=== PATIENT | female | born 1990 | race African-American/Black ===

== ENCOUNTER 2017-01-18 09:09 | Inpatient (IN) ==
--- NOTE | 2017-01-18 10:17 | PROVIDER DOCUMENTATION ---
This chart was entered by Candice Haywood Scribe, acting as scribe for Mariana Diaz CRNP. HPI-Abdominal Pain/GI Problem - General Chief Complaint: Abdominal Pain Stated Complaint: ABD PAIN Time Seen by Provider: 01/18/17 09:58 Source: patient Allergies/Adverse Reactions: Patient Allergies Allergy/AdvReac Type Severity Reaction Status Date / Time No Known Allergies Allergy Verified 01/18/17 09:23 Home Medications: Home Medication List Medication Instructions Recorded Confirmed Last Taken Type NK [No Home Medications] 01/18/17 01/18/17 Unknown History - History of Present Illness-ABD Nature of Presenting Problems: Pt is 26 y/o F presents to the ED with abdominal pain. Pt states pain started yesterday. Pt states last BM was yesterday. Pt denies N/V/D Abdominal Pain Onset Location: reports: generalized abdomen Pain Radiation: reports: no radiation Quality of Pain: reports: aching Severity in ED: reports: mild Onset/Duration: reports: 24 hours ago Timing: reports: still present Activities at Onset: reports: light activity Exposure to sick contacts?: No Modifying Factors: improves with: nothing Associated Symptoms: reports: pain with inspiration. denies: anxiety, arm pain , back/neck pain, chest pain, constipation, cough, diaphoresis, diarrhea, dizziness, EENT symptoms, fatigue, fever/chills, genitourinary problems, headaches, heartburn, joint pain, loss of appetite, malaise, muscle aches, sinus congestion/drainage, nausea, rash, seizure, shortness of breath, sensory/ motor loss, swelling/mass in abdomen, syncope, vomiting, weakness, trouble walking Last BM: 24 hours ago Dark Stools Present?: reports: none noticed Rectal Bleeding: reports: none Rectal Pain: reports: none Emesis Description: reports: none Bruising or Bleeding Gums?: No Similar Symptoms Previously?: Yes Recently seen or treated by another doctor?: No Review of Systems - Adult - REVIEW OF SYSTEMS - ADULT Constitutional: reports: no symptoms reported Eyes: reports: no symptoms reported Ears, Nose, Mouth & Throat: reports: no symptoms reported Cardiovascular: reports: no symptoms reported Respiratory: reports: no symptoms reported Gastrointestinal: reports: abdominal pain. denies: diarrhea, nausea, vomiting Genitourinary: reports: no symptoms reported Musculoskeletal: reports: no symptoms reported Integumentary: reports: no symptoms reported Neurological: reports: no symptoms reported Psychiatric: reports: no symptoms reported Endocrine: reports: no symptoms reported Hematologic/Lymphatic: reports: no symptoms reported Allergic/Immunologic: reports: no symptoms reported All Other Systems: Reviewed and Negative Past History - Adult - PAST MEDICAL HISTORY-ADULT Review of Records: reports: Nursing Assessment Review, Medications Reviewed, Social history reviewed & non-contributory. Major Childhood Illnesses: reports: denies history Cardiovascular: reports: denies history Respiratory: reports: denies history Gastrointestinal: reports: diverticulosis, other (constipation) Obstetrical/Gynecological: reports: denies history Genitourinary: reports: denies history Musculoskeletal: reports: denies history Neurological: reports: denies history Psychiatric: reports: denies history Endocrine/Immune: reports: denies history Other Conditions: reports: denies history - PRIOR SURGERIES/PROCEDURES Surgical/Procedure History: reports: - PRIOR HOSPITALIZATIONS Prior Hospitalizations: reports: none - IMMUNIZATION STATUS Childhood Immunizations: See Nurse Assessment Flu Vaccine: See Nurse Assessment - FAMILY HISTORY Family History: reviewed, not pertinent - SOCIAL HISTORY Smoking: denies Substance Use: denies Living Situation: family Physical Exam-General - PHYSICAL EXAM-ADULT Initial Vital Signs Reviewed: Yes - CONSTITUTIONAL General Appearance: appears well, alert, no apparent distress - EYES Eyes: PERRL/EOMI, pink conjunctivae - HEAD, EARS, NOSE, MOUTH & THROAT HENMT: normocephalic/atraumatic, moist mucous membranes, normal ENT inspection - NECK Neck: supple, normal inspection - RESPIRATORY Respiratory: chest non-tender, lungs clear, normal breath sounds - CARDIOVASCULAR Cardiovascular: normal peripheral pulses, regular rate, rhythm - GASTROINTESTINAL (ABDOMEN) Abdominal Exam: soft, abnormal bowel sounds (hypo active), tenderness ( generalized) - LYMPHATIC Lymphatic: no adenopathy - MUSCULOSKELETAL Back Exam: normal inspection, no CVA tenderness, no vertebral tenderness Extremity: normal range of motion, non-tender, normal gait - SKIN Integumentary: normal color, normal turgor, warm/dry - NEUROLOGIC Neurologic: grossly normal - PSYCHIATRIC Psych/Mental Status: normal mood/affect, oriented x 3 Progress - PLAN OF CARE/RESULTS Progress/Plan/Lab Results: Vital Signs - 8 hr 01/18/17 09:20 Temperature 97.5 F L Pulse Rate 74 Respiratory Rate 18 Blood Pressure 141/78 O2 Sat by Pulse Oximetry 99 Vital Signs Temp Pulse Resp BP Pulse Ox 01/18/17 09:20 97.5 F L 74 18 141/78 99 No Known Allergies Allergy (Verified 01/18/17 09:23) NK [No Home Medications] 01/18/17 Laboratory 01/18/17 01/18/17 01/18/17 10:20 10:20 09:45 WBC 5.31 RBC 4.99 Hgb 12.9 Hct 37.5 MCV 75.2 L MCH 25.9 L MCHC 34.4 RDW Std Deviation 13.8 Plt Count 358 MPV 9.0 Immature Gran % (Auto) 0.0 Neut % (Auto) 83.4 H Lymph % (Auto) 12.2 L [place] % (Auto) 4.0 Eos % (Auto) 0.2 Baso % (Auto) 0.2 Immature Gran # (Auto) 0.00 Neut # (Auto) 4.43 Lymph # (Auto) 0.65 L [place] # (Auto) 0.21 Eos # (Auto) 0.01 Baso # (Auto) 0.01 Sodium 138 Potassium 4.0 Chloride 101 Carbon Dioxide 28 Anion Gap 10 BUN 9 Creatinine 0.7 Estimated GFR/1.73 m2 > 60 BUN/Creatinine Ratio 13 Glucose 128 H Calculated Osmolality 276 Calcium 9.6 Total Bilirubin 0.90 AST 323 H ALT 317 H Alkaline Phosphatase 179 H Total Protein 7.9 Albumin 4.1 Globulin 4.0 Albumin/Globulin Ratio 1.0 Amylase 1440 H Lipase > 3000 H Urine Source CLEAN CATCH Urine Color ABUNDIO Urine Clarity CLEAR Urine pH 6.5 Ur Specific [place] 1.015 Urine Protein 1+(30 mg/dL) A Urine Ketones TRACE Urine Blood TRACE Urine Nitrite POSITIVE A Urine Bilirubin NEGATIVE Urine Urobilinogen 3+(8 mg/dL) Urine Microscopic RBC <10 Urine WBC 1+ A Urine Microscopic WBC 10-20 A Ur Epithelial Cells >10 A Urine Bacteria 2+ Urine Glucose NEGATIVE Urine Test 01/18/17 09:45 WBC RBC Hgb Hct MCV MCH MCHC RDW Std Deviation Plt Count MPV Immature Gran % (Auto) Neut % (Auto) Lymph % (Auto) [place] % (Auto) Eos % (Auto) Baso % (Auto) Immature Gran # (Auto) Neut # (Auto) Lymph # (Auto) [place] # (Auto) Eos # (Auto) Baso # (Auto) Sodium Potassium Chloride Carbon Dioxide Anion Gap BUN Creatinine Estimated GFR/1.73 m2 BUN/Creatinine Ratio Glucose Calculated Osmolality Calcium Total Bilirubin AST ALT Alkaline Phosphatase Total Protein Albumin Globulin Albumin/Globulin Ratio Amylase Lipase Urine Source Urine Color Urine Clarity Urine pH Ur Specific [place] Urine Protein Urine Ketones Urine Blood Urine Nitrite Urine Bilirubin Urine Urobilinogen Urine Microscopic RBC Urine WBC Urine Microscopic WBC Ur Epithelial Cells Urine Bacteria Urine Glucose Urine Test NEGATIVE Orders Category Date Time Status Saline Loc NOW Care 01/18/17 11:[address] ABD/PELVIS W/ IV CONT ONLY [CT] Stat Exams 01/18/17 11:26 Ordered FLAT/UPRIGHT ABD/1 VIEW CHEST [RAD] Stat Exams 01/18/17 10:14 Completed AMYLASE [CHEM] Stat Lab 01/18/17 10:20 Completed CBC WITH ELECTRONIC DIFF [HEME] Stat Lab 01/18/17 10:20 Completed COMPREHENSIVE METABOLIC PANEL [CHEM] Stat Lab 01/18/17 10:20 Completed LIPASE [CHEM] Stat Lab 01/18/17 10:20 Completed TEST-URINE [PREG] Stat Lab 01/18/17 09:[address] W/POSS RFLX CULT [URINALYSIS] Stat Lab 01/18/17 09:45 Completed URINE CULTURE [RM] Routine Lab 01/18/17 10:33 Ordered 0.9% Sodium Chloride Inj [Ns] 1,000 ml Med 01/18/17 11:04 Active IV 999 mls/hr CefTRIAXONE 1 GM/NS [Rocephin 1 gm/Ns] Med 01/18/17 11:04 Discontinued 1 gm in 50 ml IV NOW Ondansetron [Zofran] Med 01/18/17 11:04 Discontinued 4 mg IV NOW ONE Laboratory Tests 01/18/17 01/18/17 01/18/17 09:45 09:45 10:20 WBC RBC Hgb Hct MCV MCH MCHC RDW Std Deviation Plt Count MPV Immature Gran % (Auto) Neut % (Auto) Lymph % (Auto) [place] % (Auto) Eos % (Auto) Baso % (Auto) Immature Gran # (Auto) Neut # (Auto) Lymph # (Auto) [place] # (Auto) Eos # (Auto) Baso # (Auto) Sodium 138 Potassium 4.0 Chloride 101 Carbon Dioxide 28 Anion Gap 10 BUN 9 Creatinine 0.7 Estimated GFR/1.73 m2 > 60 BUN/Creatinine Ratio 13 Glucose 128 H Calculated Osmolality 276 Calcium 9.6 Total Bilirubin 0.90 AST 323 H ALT 317 H Alkaline Phosphatase 179 H Total Protein 7.9 Albumin 4.1 Globulin 4.0 Albumin/Globulin Ratio 1.0 Amylase 1440 H Lipase > 3000 H Urine Source CLEAN CATCH Urine Color ABUNDIO Urine Clarity CLEAR Urine pH 6.5 Ur Specific [place] 1.015 Urine Protein 1+(30 mg/dL) A Urine Ketones TRACE Urine Blood TRACE Urine Nitrite POSITIVE A Urine Bilirubin NEGATIVE Urine Urobilinogen 3+(8 mg/dL) Urine Microscopic RBC <10 Urine WBC 1+ A Urine Microscopic WBC 10-20 A Ur Epithelial Cells >10 A Urine Bacteria 2+ Urine Glucose NEGATIVE Urine Test NEGATIVE 01/18/17 10:20 WBC 5.31 RBC 4.99 Hgb 12.9 Hct 37.5 MCV 75.2 L MCH 25.9 L MCHC 34.4 RDW Std Deviation 13.8 Plt Count 358 MPV 9.0 Immature Gran % (Auto) 0.0 Neut % (Auto) 83.4 H Lymph % (Auto) 12.2 L [place] % (Auto) 4.0 Eos % (Auto) 0.2 Baso % (Auto) 0.2 Immature Gran # (Auto) 0.00 Neut # (Auto) 4.43 Lymph # (Auto) 0.65 L [place] # (Auto) 0.21 Eos # (Auto) 0.01 Baso # (Auto) 0.01 Sodium Potassium Chloride Carbon Dioxide Anion Gap BUN Creatinine Estimated GFR/1.73 m2 BUN/Creatinine Ratio Glucose Calculated Osmolality Calcium Total Bilirubin AST ALT Alkaline Phosphatase Total Protein Albumin Globulin Albumin/Globulin Ratio Amylase Lipase Urine Source Urine Color Urine Clarity Urine pH Ur Specific [place] Urine Protein Urine Ketones Urine Blood Urine Nitrite Urine Bilirubin Urine Urobilinogen Urine Microscopic RBC Urine WBC Urine Microscopic WBC Ur Epithelial Cells Urine Bacteria Urine Glucose Urine Test Discussed results and plan of care with patient. Patient agrees with plan and verbalizes understanding. Result Diagrams: 01/18/17 10:20 01/18/17 10:20 - CT/MRI 1 CT Study: Abdomen (1. Small amount of abdominal and pelvic ascities. 2. Mildly prominant liver with mild fatty infiltration. 3. Subtle hypodense area at pancreatic head and body junction, but no distinct mass or pancreatic duct dilatation. 4. Questionable omental thickening. The appearance may simply be due to ascities. ([place])), Pelvis CT Results: See note - CONSULTS/PCP/HOSPITALIST Notification #1 *Consult/PCP/Hospitalist*: Dr. Hale Time Discussed: 13:09 Reason/Comments: Admission Consult Disposition: Will see in ED, Admit Departure - Departure Time of Disposition Decision: 11:58 DIAGNOSIS: Pancreatitis Qualifiers: Chronicity: acute Pancreatitis type: unspecified pancreatitis type Acute pancreatitis complication: unspecified Qualified Code(s): K85.90 - Acute pancreatitis without necrosis or infection, unspecified Ascites Qualifiers: Ascites type: other type Qualified Code(s): R18.8 - Other ascites Nausea and vomiting Qualifiers: Vomiting type: unspecified Vomiting Intractability: non-intractable Qualified Code(s): R11.2 - Nausea with vomiting, unspecified Disposition: ADMITTED INPATIENT 09 Certified Medical Emergency: Emergent Condition: Stable Referrals and Follow-Ups: Georges Collins MD [Primary Care Provider] - - Critical Care Note This patient required my direct & personal management of CC.: No Attestation - Physician/ CORNELIO Attestation Patient care was provided by Advanced Practice Provider:: Yes Advanced Practice Provider:: Mariana Diaz Advanced Practice Provider documentation review:: The Mid-level provider documentation, treatment plan and medical decision making was reviewed by the physician who agrees with all treatment and medical decision making by the MLP. This chart was documented by the indicated scribe, (Candice Haywood Scribe) and accurately reflects the services I performed and decisions made by me, Mariana Diaz CRNP, as attested by the provider's signature.
[2017-01-18 10:24] LABS: MANUAL DIFF NEEDED? NO
[2017-01-18 10:25] LABS: BASO% 0.2 % (0.0-0.8); EOS# 0.01 X1000 (0.0-0.7); EOS% 0.2 % (0.0-10.0); HEMATOCRIT 37.5 % (37.0-47.0); HEMOGLOBIN 12.9 g/dL (12.0-16.0); LYMPH# 0.65 X1000 (1.2-3.4); LYMPH% 12.2 % (20.5-51.1); MCH 25.9 PG (27-31); MCHC 34.4 g/dL (33-37); MCV 75.2 FL (81-99); MONO# 0.21 X1000 (0.11-0.59); NEUT% 83.4 % (42.2-75.2); PLT 358 X1000 (130-400); RBC 4.99 XMIL (4.2-5.4)
[2017-01-18 10:26] LABS: BILIRUBIN URINE NEGATIVE (NEGATIVE); BLOOD URINE TRACE (NEGATIVE); CLARITY CLEAR (CLEAR); COLOR AMBER; GLUCOSE URINE NEGATIVE (NEGATIVE); LEUKOCYTES URINE 1+ (NEGATIVE); NITRITE URINE POSITIVE (NEGATIVE); PH URINE 6.5; PROTEIN URINE 1+(30 mg/dL) mg/dL (NEGATIVE); SP GRAVITY URINE 1.015
[2017-01-18 10:33] LABS: URINE CULTURE PL NEEDED? YES; URINE EPITHELIAL CELLS >10 /HPF (<10); URINE RBC <10 /HPF (<10); URINE SOURCE CLEAN CATCH; UROBILINOGEN URINE 3+(8 mg/dL)
[2017-01-18 10:39] LABS: AGAP 10; ALBUMIN 4.1 g/dL (3.5-5.0); ALKALINE PHOSPHATASE 179 U/L (32-104); AMYLASE 1440 U/L (20-200); BUN 9 mg/dL (8-22); CALCIUM 9.6 mg/dL (8.8-10.2); CHLORIDE 101 mmol/L (98-107); COSMO 276; GOT 323 U/L (10-30); GPT 317 U/L (10-36); SODIUM 138 mmol/L (136-145); TCO2 28 mmol/L (25-35); TOTAL PROTEIN 7.9 g/dL (6.3-8.3)
[2017-01-18] MEDS ORDERED: ROCEPHIN 1 GM/NS 1 GM/50 ML IVPB IV ONE (11:04)
[2017-01-18] MEDS ORDERED: ZOFRAN IV ONE (11:04)
[2017-01-18] MEDS ORDERED: NS 1,000 ML IV ONE (11:04)
[2017-01-18 11:19] LABS: LIPASE > 3000 U/L (13-60)
--- NOTE | 2017-01-18 11:30 | Diag Imaging Result Doc PS360 ---
EXAM: FLAT/UPRIGHT ABD/1 VIEW CHEST HISTORY: abd pain TECHNIQUE: Flat and upright with chest, three views COMPARISON: Abdomen is compared to 05/08/2016 FINDINGS: The lungs are well expanded. Cardiomegaly. No pneumonia. No free air beneath the diaphragm. There is stool throughout the transverse colon. The bowel loops are not dilated. No organomegaly. No foreign body. No abnormal calcifications. Mild scoliosis. IMPRESSION: Constipation Electronically signed by Fer Ma 01/18/2017 11:28 AM
--- NOTE | 2017-01-18 12:26 | Diag Imaging Result Doc PS360 ---
EXAM: CT ABD/PELVIS W/ IV CONT ONLY HISTORY: abd pain TECHNIQUE: Dose reduction protocol COMPARISON: 03/01/2016 FINDINGS: Mild fatty infiltration of the liver. No focal hepatic abnormality. The liver is mildly prominent. Normal spleen, gallbladder, and adrenal glands. Normal enhancement of the kidneys. Vague hypodense area at the junction of the pancreatic head and body, but no distinct mass. The pancreatic duct is not dilated. There is a small amount of free fluid in the upper abdomen about the pancreas and spleen. Normal aorta. No bowel obstruction. Normal appendix. No abscess. Small amount of ascites in the lower abdomen with moderate amount in the pelvis. Normal uterus and ovaries. The urinary bladder is only mildly distended. IMPRESSION: 1.Small amount of abdominal and pelvic ascites 2.Mildly prominent liver with mild fatty infiltration 3.Subtle hypodense area at pancreatic head and body junction, but no distinct mass or pancreatic duct dilatation. 4.Questionable omental thickening. The appearance may simply be due to ascites. Electronically signed by Fer Ma 01/18/2017 12:24 PM
[2017-01-18] MEDS: ZOSYN 3.375 GM/NS 3.375 GM/50 ML IVPB IV SCH ×2 (14:09→20:34)
--- NOTE | 2017-01-18 14:23 | Diag Imaging Result Doc PS360 ---
EXAM: US GB < RUQ (LIMITED) HISTORY: pancreatitis TECHNIQUE: COMPARISON: Recent abdominal CT FINDINGS: Normal pancreatic head and body. Pancreatic tail is obscured. Normal inferior vena cava. Normal abdominal aorta. Mild fatty infiltration of the liver. No focal hepatic abnormality. Normal right kidney. No hydronephrosis. The common bile duct measures 3 mm. Several stones within the gallbladder. There is a small amount of ascites in the right upper quadrant. Mild gallbladder wall thickening. This is specifically seen with ascites thus is not indicative of cholecystitis. IMPRESSION: 1.Cholelithiasis 2.Small amount of ascites 3.Fatty infiltration of the liver 4.A preliminary report was given to Dr. Hale Electronically signed by Fer Ma 01/18/2017 2:21 PM
[2017-01-18] MEDS: MORPHINE IV PRN ×3 (14:28→23:04)
[2017-01-18] MEDS ORDERED: TYLENOL PO PRN (16:11)
[2017-01-18] MEDS ORDERED: PROTONIX IV SCH (16:11)
[2017-01-18] MEDS: NS 1,000 ML IV SCH (16:35)
[2017-01-18] MEDS: PROTONIX IV SCH (16:36)
[2017-01-18] MEDS: SODIUM CHLORIDE 0.9% INJ SCH (16:36)
--- NOTE | 2017-01-18 18:16 | HISTORY AND PHYSICAL ---
PRIMARY CARE PHYSICIAN: Dr. Georges Collins. CHIEF COMPLAINT: Epigastric and right upper quadrant abdominal pain that began yesterday. HISTORY OF PRESENTING ILLNESS: This is a 26-year-old female who presents to [facility] ER with complaints of epigastric and right upper quadrant abdominal pain that began yesterday with associated nausea. Denied any vomiting or diarrhea. Workup in the ER showed an amylase of 1440 with a lipase of greater than 3000, AST of 323, ALT 317, alkaline phosphatase 179. We did an abdomen and pelvic CT that showed a small amount of abdominal and pelvic ascites. Mildly prominent liver with mild fatty infiltration, and no distinct mass or pancreatic duct dilation and a questionable omental thickening that may simply be due to ascites. We did a right upper quadrant abdominal ultrasound that showed cholelithiasis, a small amount of ascites, fatty infiltration of the liver. The common bile duct measured 3 mm with several stones within the gallbladder. So, she will be admitted to the surgical unit at [facility] for further evaluation and treatment. PAST MEDICAL HISTORY: None. PAST SURGICAL HISTORY: . FAMILY HISTORY: Noncontributory. SOCIAL HISTORY: She currently lives with family. Denies any tobacco, alcohol, or illicit drug use. ALLERGIES: She has no known drug allergies. HOME MEDICATIONS: She does not take any medicines on a routine basis. LABORATORY DATA: Showed a white blood cell count of 5.31, hemoglobin 12.9, hematocrit 37.5, platelets 358,000. Sodium 138, potassium 4, chloride 101, CO2 28, BUN of 9, creatinine 0.7, AST of 323, ALT 317, alkaline phosphatase was 179, amylase of 1440 with a lipase of greater than 3000. Urinalysis with positive nitrites, 1+ white blood cells and 2+ bacteria. Negative urine test. X-ray of the abdomen showed constipation. Abdomen and pelvis CT showed a small amount of abdominal and pelvic ascites, mildly prominent liver with mild fatty infiltration, a subtle hypodense area at the pancreatic head and body junction, but no distinct mass or pancreatic duct dilation. Questionable omental thickening that appears simply be due to the ascites. Abdomen ultrasound showed cholelithiasis, a small amount of ascites, fatty infiltration of the liver. REVIEW OF SYSTEMS: She denied any fever, chills, blurred vision, dizziness, chest pain, coughing, shortness of breath. She is positive for epigastric and right upper quadrant abdominal pain, nausea, denied any vomiting or diarrhea. PHYSICAL EXAMINATION: VITAL SIGNS: Temperature of 97.5 degrees, pulse 74, respirations 18, blood pressure 141/78, saturating 99% on room air. GENERAL: This is a 26-year-old morbidly obese, female, who is sitting up in the bed, answers questions appropriately. HEENT: Normocephalic and atraumatic. Pupils are equal, round, reactive to light. Extraocular movements are intact. Oropharynx and nares are clear. NECK: Supple. LUNGS: Clear to auscultation bilaterally with equal lung expansion and chest wall movement. HEART: With regular rate and rhythm. No murmurs, rubs, or gallops. ABDOMEN: Soft. There is tenderness to palpation to the epigastric and right upper quadrant area. Bowel sounds are present x4 quadrants. EXTREMITIES: No clubbing, cyanosis, or edema. NEUROLOGICAL: The cranial nerves 2-12 appear grossly intact. ASSESSMENT: 1. Acute pancreatitis. 2. Cholelithiasis. 3. Elevated liver function tests. 4. Urinary tract infection. PLAN: She will be admitted to the Surgical Unit at [facility]. We will hold her nothing per oral. We will check a urine culture, give her morphine 2-4 mg IV q.4 hours p.r.n., Zosyn 3.375 g IV q.6 hours, normal saline at 125 mL an hour, Zofran 4 mg IV q.4 hours p.r.n., Protonix 40 mg IV daily. We will consult Surgery, place on telemetry and recheck a CBC, CMP, amylase and lipase in the a.m. Dictated by NICOLETTE Escalera for Ovi Hale MD cc: NICOLETTE Escalera MD Malcolm R. Hendricks, MD pt examined, agree with above APENOT MTDD
[2017-01-19] MEDS: ZOSYN 3.375 GM/NS 3.375 GM/50 ML IVPB IV SCH ×5 (00:06→17:31)
[2017-01-19] MEDS: NS 1,000 ML IV SCH ×3 (01:21→17:44)
[2017-01-19 05:30] LABS: MANUAL DIFF NEEDED? NO
[2017-01-19 05:39] LABS: BASO% 0.2 % (0.0-0.8); EOS# 0.03 X1000 (0.0-0.7); EOS% 0.5 % (0.0-10.0); HEMATOCRIT 32.1 % (37.0-47.0); HEMOGLOBIN 10.9 g/dL (12.0-16.0); LYMPH% 12.6 % (20.5-51.1); MCV 76.6 FL (81-99); MONO# 0.42 X1000 (0.11-0.59); MONO% 6.6 % (1.7-9.3); MPV 9.1 FL (7.4-10.4); NEUT% 80.1 % (42.2-75.2); PLT 286 X1000 (130-400); RBC 4.19 XMIL (4.2-5.4)
[2017-01-19 05:54] LABS: AGAP 11; ALBUMIN 3.4 g/dL (3.5-5.0); ALKALINE PHOSPHATASE 133 U/L (32-104); AMYLASE 938 U/L (20-200); BUN 7 mg/dL (8-22); CALCIUM 8.4 mg/dL (8.8-10.2); CHLORIDE 105 mmol/L (98-107); COSMO 282; GOT 93 U/L (10-30); GPT 175 U/L (10-36); POTASSIUM 3.6 mmol/L (3.5-5.1); SODIUM 142 mmol/L (136-145); TCO2 26 mmol/L (25-35); TOTAL BILIRUBIN 0.85 mg/dL (0.20-1.00); TOTAL PROTEIN 6.7 g/dL (6.3-8.3)
[2017-01-19 05:58] LABS: LIPASE 1369 U/L (13-60)
[2017-01-19] MEDS: MORPHINE IV PRN ×2 (06:53→20:59)
--- NOTE | 2017-01-19 07:04 | CONSULTATION ---
DATE OF CONSULTATION: 01/19/2017 CHIEF COMPLAINT: Epigastric pain. HISTORY: A 26-year-old, female who reports the onset of epigastric pain last Thursday. The pain persisted and she sought medical attention yesterday. She reports having symptoms like this recurrently. Workup showed elevated amylase and lipase, and some gallstones. PAST MEDICAL HISTORY: Unremarkable. PAST SURGICAL HISTORY: She has had a in the past. FAMILY HISTORY: Noncontributory. SOCIAL HISTORY: She denies tobacco or alcohol usage. MEDICATIONS: She takes no scheduled medications. ALLERGIES: Has no known drug allergies. REVIEW OF SYSTEMS: Pertinent for nausea and pain. No diarrhea. PHYSICAL EXAMINATION: Vital Signs: She is afebrile, heart rate 73, respiratory rate 16, blood pressure 153/74. Lymphatics: No cervical adenopathy. Heart: Regular rate and rhythm. There is a systolic murmur. Lungs: Bilateral breath sounds are present. Abdomen: Soft, but tender in the epigastrium. Extremities: No peripheral edema. Neurologic: She is awake and alert. DIAGNOSTICS/LABS: White count is 6300, hemoglobin 10.9, hematocrit 32. Total bilirubin 0.85, AST 93 down from 323, ALT 175 down from 317, alkaline phosphatase 133 down from 179, amylase 938 down from 1440, lipase 1369 down from greater than 3000. Urine is nitrite positive. test is negative. ASSESSMENT: Gallstone pancreatitis. PLAN: We will allow her amylase and lipase to normalize or at least improve more. Consider her for a cholecystectomy on Thursday, the . I have discussed this with her. Thank you for the opportunity to see her. cc: Edison Granado MD
[2017-01-19] MEDS: ZOFRAN IV PRN ×2 (08:29→21:00)
--- NOTE | 2017-01-19 08:54 | PROGRESS NOTE ---
DATE: 01/19/2017 Ms. Savanah Lofton is a 26-year-old, black female, who is hospital day 2. Admitted with gallstone pancreatitis. Her amylase is improving. It is 938 today. Lipase is 1369. She is afebrile. Heart rate is 67, blood pressure 126/70, O2 saturation 98%. Her white blood cell count is normal. Hematocrit is 32%. She is on IV Zosyn. BUN and creatinine are 7 and 0.7. She does have cholelithiasis by ultrasound. It was felt that this was gallstone pancreatitis and as her amylase and lipases improves with conservative treatment, she needs cholecystectomy. cc: Karen Hines MD
[2017-01-19] MEDS ORDERED: TYLENOL PO PRN (11:08)
--- NOTE | 2017-01-19 13:56 | PROGRESS NOTE ---
DATE: 01/19/2017 SUBJECTIVE: The patient is resting comfortably in bed. She has no complaints at this time. OBJECTIVE: Vital Signs: Temperature 98.5 degrees, blood pressure 143/78, heart rate 76, respirations 20, O2 saturations 99% on room air. General: This is a young female lying in bed in no acute distress. Head: Normocephalic, atraumatic. Heart: S1, S2. Normal. Regular rate and rhythm. Lungs: Clear auscultation bilaterally. Abdomen: Positive bowel sounds. Soft, nontender. Extremities: No edema. No cyanosis. Neurologic: The patient is alert oriented x3. LABORATORY STUDIES: White blood cell count 6.3, hemoglobin 10, hematocrit 32, platelets 286,000. Sodium 142, potassium 3.6, chloride 105, CO2 26, BUN 7, creatinine 0.7, glucose 111, AST 93, ALT 175, alkaline phosphatase 133, lipase 1369. ASSESSMENT AND PLAN: 1. Gallstone pancreatitis. Continue with IV fluids, IV antibiotics. The patient is scheduled for a laparoscopic cholecystectomy tomorrow. 2. Fatty infiltration of the liver. Aware. Will check a lipid profile. 3. Morbid obesity. Aware. 4. Deep vein thrombosis prophylaxis. Continue with SCDs. 5. Gastrointestinal prophylaxis. Will start the patient on Protonix. cc: Araina Jones MD
[2017-01-19] MEDS: SODIUM CHLORIDE 0.9% INJ SCH (17:31)
[2017-01-19] MEDS: PROTONIX IV SCH (17:31)
[2017-01-20] MEDS: ZOSYN 3.375 GM/NS 3.375 GM/50 ML IVPB IV SCH ×4 (00:29→17:27)
[2017-01-20] MEDS: NS 1,000 ML IV SCH ×3 (03:58→15:45)
[2017-01-20 05:27] LABS: MANUAL DIFF NEEDED? NO
[2017-01-20 05:38] LABS: BASO% 0.2 % (0.0-0.8); EOS# 0.08 X1000 (0.0-0.7); EOS% 1.2 % (0.0-10.0); HEMATOCRIT 30.6 % (37.0-47.0); HEMOGLOBIN 10.4 g/dL (12.0-16.0); LYMPH# 1.19 X1000 (1.2-3.4); LYMPH% 18.3 % (20.5-51.1); MCV 76.5 FL (81-99); MONO# 0.58 X1000 (0.11-0.59); MONO% 8.9 % (1.7-9.3); MPV 9.6 FL (7.4-10.4); NEUT% 71.4 % (42.2-75.2); PLT 267 X1000 (130-400)
[2017-01-20 06:16] LABS: AGAP 10; ALBUMIN 3.4 g/dL (3.5-5.0); ALKALINE PHOSPHATASE 114 U/L (32-104); BUN 4 mg/dL (8-22); CALCIUM 8.5 mg/dL (8.8-10.2); CHLORIDE 103 mmol/L (98-107); COSMO 276; GOT 38 U/L (10-30); GPT 106 U/L (10-36); POTASSIUM 3.5 mmol/L (3.5-5.1); SODIUM 140 mmol/L (136-145); TCO2 27 mmol/L (25-35); TOTAL BILIRUBIN 0.59 mg/dL (0.20-1.00); TOTAL PROTEIN 6.9 g/dL (6.3-8.3)
[2017-01-20] MEDS ORDERED: SODIUM CHLORIDE 0.9% ONE (12:40)
[2017-01-20] MEDS ORDERED: LR 1,000 ML ONE ×2 (12:40→14:54)
[2017-01-20] MEDS ORDERED: MARCAINE 0.25% PF/EPI 1:200,000 ONE (12:41)
[2017-01-20] MEDS ORDERED: REGLAN ONE (12:50)
[2017-01-20] MEDS ORDERED: VERSED ONE (12:50)
[2017-01-20] MEDS ORDERED: TRANSDERM-SCOP ONE (12:50)
[2017-01-20] MEDS ORDERED: PEPCID ONE (12:50)
[2017-01-20 12:54] LABS: HEPATITIS PROFILE ACUTE SEE COMMENTS
[2017-01-20] MEDS ORDERED: MORPHINE IV PRN (13:58)
[2017-01-20] MEDS ORDERED: FENTANYL ONE (14:08)
[2017-01-20] MEDS ORDERED: DIPRIVAN 1% ONE (14:09)
[2017-01-20] MEDS ORDERED: DECADRON ONE (14:54)
[2017-01-20] MEDS ORDERED: ZEMURON ONE (14:54)
[2017-01-20] MEDS ORDERED: ROBINUL ONE (14:54)
[2017-01-20] MEDS ORDERED: ZOFRAN ONE (14:54)
[2017-01-20] MEDS ORDERED: QUELICIN (DOSE) ONE (14:54)
[2017-01-20] MEDS ORDERED: NEOSTIGMINE ONE (14:54)
[2017-01-20] MEDS ORDERED: TORADOL ONE (14:54)
[2017-01-20] MEDS ORDERED: XYLOCAINE-MPF 2% ONE (14:54)
--- NOTE | 2017-01-20 16:03 | PROGRESS NOTE ---
DATE: 01/20/2017 SUBJECTIVE: The patient is laying comfortably in bed. She is awaiting surgery today. OBJECTIVE: Vital Signs: Temperature 98.6 degrees, blood pressure 130/88, heart rate 73, respirations 16, O2 saturations 98% on room air. General: This is a morbidly obese female, lying in bed, in no acute distress. Head: Normocephalic, atraumatic. Heart: S1, S2. Normal. Regular rate and rhythm. Lungs: Clear to auscultation bilaterally. No wheezes, no rales. No rhonchi. Abdomen: Positive bowel sounds. Soft, nontender, nondistended. Extremities: No edema. No cyanosis. No calf tenderness. LABORATORY: White blood cell count 6.5, hemoglobin 10, hematocrit 30, platelets 267,000. Sodium 140, potassium 3.5, BUN 4, creatinine 0.5, AST 38, ALT 106, alkaline phosphatase 114. ASSESSMENT AND PLAN: 1. Gallstone pancreatitis. The patient is scheduled to undergo laparoscopic cholecystectomy today. 2. Fatty liver disease. Aware. The patient has been advised about weight loss. 3. Morbid obesity. Aware. 4. Gastrointestinal prophylaxis. Continue on Protonix. 5. Deep vein thrombosis prophylaxis. Continue with Sequential Compression Devices. cc: Ariana Jones MD
[2017-01-20] MEDS: PROTONIX IV SCH (17:28)
[2017-01-20] MEDS: SODIUM CHLORIDE 0.9% INJ SCH (17:28)
[2017-01-20] MEDS: PERIDEX MT SCH (20:38)
[2017-01-21] MEDS: NS 1,000 ML IV SCH ×2 (00:06→09:09)
[2017-01-21] MEDS: ZOSYN 3.375 GM/NS 3.375 GM/50 ML IVPB IV SCH ×2 (03:12→08:47)
[2017-01-21 05:37] LABS: MANUAL DIFF NEEDED? NO
[2017-01-21 05:45] LABS: BASO% 0.1 % (0.0-0.8); HEMATOCRIT 27.9 % (37.0-47.0); HEMOGLOBIN 9.4 g/dL (12.0-16.0); LYMPH# 1.16 X1000 (1.2-3.4); LYMPH% 16.6 % (20.5-51.1); MCH 25.6 PG (27-31); MCHC 33.7 g/dL (33-37); MONO# 0.68 X1000 (0.11-0.59); MONO% 9.8 % (1.7-9.3); MPV 9.7 FL (7.4-10.4); NEUT% 73.5 % (42.2-75.2); PLT 241 X1000 (130-400); RBC 3.67 XMIL (4.2-5.4)
[2017-01-21 06:14] LABS: AGAP 9; ALBUMIN 3.4 g/dL (3.5-5.0); ALKALINE PHOSPHATASE 94 U/L (32-104); BUN 6 mg/dL (8-22); CALCIUM 8.7 mg/dL (8.8-10.2); CHLORIDE 106 mmol/L (98-107); COSMO 279; GOT 28 U/L (10-30); GPT 76 U/L (10-36); LIPASE 30 U/L (13-60); POTASSIUM 3.9 mmol/L (3.5-5.1); SODIUM 141 mmol/L (136-145); TCO2 26 mmol/L (25-35); TOTAL BILIRUBIN 0.36 mg/dL (0.20-1.00); TOTAL PROTEIN 7.3 g/dL (6.3-8.3)
[2017-01-21] MEDS: PERIDEX MT SCH (08:47)
[2017-01-21] MEDS ORDERED: NORCO-5 PO PRN (09:34)
[2017-01-21 11:45] VITALS: BP 136/74
--- NOTE | 2017-01-28 11:19 | OPERATIVE NOTE ---
PROCEDURE DATE: 01/20/2017 SURGEON: Edison Granado MD PREOPERATIVE DIAGNOSIS: Acute calculous cholecystitis. POSTOPERATIVE DIAGNOSIS: Acute calculous cholecystitis. PROCEDURE: Laparoscopic cholecystectomy with operative cholangiogram. DESCRIPTION OF PROCEDURE: The patient was placed supine on the operating room table, satisfactory general endotracheal anesthesia was achieved. The abdomen is prepped and draped in a sterile fashion. We anesthetized skin at the base of the umbilicus, used a 5 mm Optiview technique to enter the abdominal cavity. We insufflated through this trocar. Under direct visualization introduced a 5 trocar midclavicular line, a 5 trocar in the anterior axillary line, an 11 mm trocar in the midepigastrium. We placed the patient in reverse Trendelenburg and turned her to the left. We grasped the fundus, reflected cephalad, began dissection of the triangle of Calot. We then dissected the triangle of Calot, identified the cystic artery and cystic duct. We clipped the junction of the cystic duct near the junction of the gallbladder. We incised the cystic duct introduced a Inés catheter, shot the cholangiogram. The findings showed satisfactory flow into the duodenum. No intraluminal filling defects. We removed the cholangiogram catheter, clipped the cystic duct on the opposite side of the cystic ductotomy x2. We then transected the cystic duct. The cystic artery clipped proximally x2, distally x1, and divided. We then used the cautery spatula to dissect the gallbladder away from the liver. After complete separation of gallbladder from liver, we left the videolaparoscope in the 5 mm trocar at the umbilicus, we introduced an EndoCatch, placed the gallbladder within the bag and delivered it out of the abdominal cavity in the epigastrium. We looked back, hemostasis was satisfactory. We then decompressed the abdominal cavity. We closed the fascia in the epigastrium with 2-0 Polysorb fascial stitches. We closed the skin at each incision with 4-0 Polysorb subcuticular stitches. Sterile OpSite were applied. She tolerated it well, was sent to the recovery room in satisfactory condition. cc: Edison Granado MD [facility]
--- NOTE | 2017-02-01 19:02 | DISCHARGE SUMMARY ---
ADMISSION DATE: 01/18/2017 DISCHARGE DATE: 01/21/2017 FINAL DISCHARGE DIAGNOSES: 1. Gallstone pancreatitis, status post laparoscopic cholecystectomy. 2. Fatty liver disease. 3. Morbid obesity. CONSULTATIONS REQUESTED DURING THIS HOSPITAL STAY: General surgery consultation with Dr. Granado. PROCEDURES PERFORMED DURING THIS HOSPITAL STAY: Laparoscopic cholecystectomy performed on 01/20/2017. HOSPITAL COURSE: Ms. Lofton is a 26-year-old female, with a history of morbid obesity, who presented to the ER with a chief complaint of epigastric pain, as well as right upper quadrant pain. The patient was admitted to the hospitalist service. An abdominal ultrasound was done that revealed cholelithiasis. The patient also had a CT of the abdomen and pelvis done that revealed mild fatty liver infiltration. The patient was made n.p.o. and General Surgery was consulted. The patient was taken to the OR on 01/20/2017, at which time a laparoscopic cholecystectomy was performed. The patient did well postoperatively. The patient was ultimately cleared for discharge home on 01/22/2016. DISCHARGE MEDICATIONS: 1. Levaquin 500 mg p.o. daily. 2. [place] 10/325 mg one tablet every 4 hours P.R.N. pain. DISCHARGE DIET: [place] diet. ACTIVITY: As tolerated. FOLLOWUP INSTRUCTIONS: The patient has been advised to followup with Dr. Granado as scheduled by his clinic. cc: Ariana Jones MD
== END 2017-01-21 13:47 | disposition home or self-care (01) ==
LOC: P.ED 09:09 → 4N 15:04 → SUATTDRO 15:04
PROVIDERS: ATTEND Internal Medicine

== ENCOUNTER 2019-02-05 19:37 | Observation (INO) ==
[~2019-02-05 19:37] MED LIST: MAGNESIUM SULFATE ONE
[2019-02-05] MEDS ORDERED: MAGNESIUM SULFATE 2 GM/S.W.I. 2 GM/50 ML IVPB IV ONE (19:42)
[2019-02-05] MEDS ORDERED: NS 500 ML IV ONE (19:43)
[2019-02-05 20:13] LABS: BASO# 0.02 X1000 (0.0-0.2); BASO% 0.3 % (0.0-0.8); EOS# 0.14 X1000 (0.0-0.7); EOS% 2.3 % (0.0-10.0); HEMATOCRIT 29.9 % (37.0-47.0); HEMOGLOBIN 10.3 g/dL (12.0-16.0); IMM GRAN# 0.04 X1000 (0.0-0.04); IMM GRAN% 0.7 % (0.0-0.5); LYMPH# 1.53 X1000 (1.2-3.4); LYMPH% 25.2 % (20.5-51.1); MCH 25.4 PG (27-31); MCHC 34.4 g/dL (33-37); MCV 73.8 FL (81-99); MONO# 0.44 X1000 (0.11-0.59); MONO% 7.2 % (1.7-9.3); MPV 9.4 FL (7.4-10.4); NEUT# 3.91 X1000 (1.4-6.5); NEUT% 64.3 % (42.2-75.2); PLT 277 X1000 (130-400); RBC 4.05 XMIL (4.2-5.4); WBC 6.08 X1000 (4.8-10.8)
[2019-02-05 20:18] LABS: AGAP 15; ALBUMIN 4.1 g/dL (3.5-5.0); ALKALINE PHOSPHATASE 83 U/L (32-104); BUN 6 mg/dL (8-22); CALCIUM 9.4 mg/dL (8.8-10.2); CHLORIDE 101 mmol/L (98-107); COSMO 270; CREATININE 0.5 mg/dL (0.5-0.9); ESTIMATED GFR > 60; GLUCOSE 110 mg/dL (70-104); GOT 19 U/L (10-30); GPT 23 U/L (10-36); POTASSIUM 3.6 mmol/L (3.5-5.1); SODIUM 136 mmol/L (136-145); TCO2 21 mmol/L (25-35); TOTAL PROTEIN 7.6 g/dL (6.3-8.3)
[2019-02-05 20:20] LABS: LYMPHS 28 % (21-51); MONO 6 % (1-9); SEGS 66 % (42-75)
[2019-02-05 20:21] LABS: HYPOCHROM 2+; MICROCYTOSIS 1+
[2019-02-05] MEDS ORDERED: KEPPRA 500 MG in NS 100 ML IV ONE (21:06)
--- NOTE | 2019-02-05 21:54 | Diag Imaging Result Doc PS360 ---
EXAM: CT HEAD W/O CONTRAST HISTORY: seizure, TECHNIQUE: CT head without contrast COMPARISON: 05/11/2016 FINDINGS: No parenchymal hemorrhage. No epidural or subdural hematoma. No subarachnoid hemorrhage. No mass identified on this noncontrasted exam. No hydrocephalus. No sinus opacification. IMPRESSION: No hemorrhage. Negative brain CT without contrast. This exam was performed using automated exposure control, adjustment of mA or kV according to patient size, and/or use of iterative reconstruction technique. Electronically signed by Fer Ma 02/05/2019 9:52 PM
[2019-02-05] MEDS ORDERED: NS 1,000 ML IV ONE (22:09)
[2019-02-05] MEDS ORDERED: LAMICTAL PO ONE (22:49)
[2019-02-05] MEDS ORDERED: TYLENOL ONE (23:13)
[2019-02-05] MEDS ORDERED: NUBAIN IV PRN (23:13)
[2019-02-05] MEDS ORDERED: TYLENOL PO ONE (23:14)
[2019-02-06] LABS: BILIRUBIN URINE NEGATIVE (NEGATIVE); BLOOD URINE NEGATIVE (NEGATIVE); CLARITY SL. CLOUDY (CLEAR); COLOR YELLOW; GLUCOSE URINE NEGATIVE (NEGATIVE); KETONE URINE TRACE mg/dL (NEGATIVE); LEUKOCYTES URINE TRACE (NEGATIVE); NITRITE URINE NEGATIVE (NEGATIVE); PROTEIN URINE NEGATIVE (NEGATIVE); SP GRAVITY URINE 1.015; URINE BACTERIA 3+ /HFP; URINE EPITHELIAL CELLS <10 /HPF (<10); URINE RBC <10 /HPF (<10); URINE SOURCE CATH; URINE WBC <10 /HPF (<10); UROBILINOGEN URINE 1 mg/dL
--- NOTE | 2019-02-06 03:01 | PROVIDER DOCUMENTATION ---
This chart was entered by Emma Swain Scribe, acting as scribe for Gayatri De Dios MD. HPI-Neurological Disorder - General Chief Complaint: Seizure Stated Complaint: seizure Time Seen by Provider: 02/05/19 19:38 Source: RN/MD, EMS Allergies/Adverse Reactions: Patient Allergies Allergy/AdvReac Type Severity Reaction Status Date / Time No Known Allergies Allergy Verified 05/23/18 07:30 Home Medications: Home Medication List Medication Instructions Recorded Confirmed Last Taken Type Pnv Comb.no58/Iron Bisgly/FA 1 tab PO DAILY 01/06/18 02/05/19 01/06/18 History [ Capsule] - History of Present Illness-Neuro Nature of Presenting Problem: 28 yof c/o pt arrived via ems for seizure. ems and rn historians. pt is 4-5 months and had seizure at dinner. pt is in er. rn sts pt and sts she is , no care. pt unable to answer questions, but can comprehend. pt has hx of seizures. rn sts pt told her LMP was oct 07, 2018. - Seizure Episode details: reports: unknown duration, unknown number Post-ictal Symptoms: reports: speech difficulty Review of Systems - Adult - REVIEW OF SYSTEMS - ADULT Constitutional: reports: no symptoms reported Eyes: reports: no symptoms reported Ears, Nose, Mouth & Throat: reports: no symptoms reported Cardiovascular: reports: no symptoms reported Respiratory: reports: no symptoms reported Gastrointestinal: reports: no symptoms reported Genitourinary: reports: see HPI, other (pt is 4-5 months ). denies: hematuria, hesitency, incontinence Musculoskeletal: reports: no symptoms reported Integumentary: reports: no symptoms reported Neurological: reports: see HPI, seizure. denies: dizziness/vertigo, head ache/migraines, slurred speech Psychiatric: reports: no symptoms reported Endocrine: reports: no symptoms reported Hematologic/Lymphatic: reports: no symptoms reported Allergic/Immunologic: reports: no symptoms reported All Other Systems: Reviewed and Negative Past History - Adult - PAST MEDICAL HISTORY-ADULT Review of Records: reports: Old Records Reviewed, Nursing Assessment Review, Medications Reviewed, Social history reviewed & non-contributory. Major Childhood Illnesses: reports: denies history Cardiovascular: reports: denies history Respiratory: reports: denies history Gastrointestinal: reports: diverticulosis, other (constipation) Obstetrical/Gynecological: reports: denies history Genitourinary: reports: denies history Musculoskeletal: reports: denies history Neurological: reports: Seizures/Epilepsy Psychiatric: reports: denies history Endocrine/Immune: reports: Diabetes (gestational) Other Conditions: reports: denies history - PRIOR SURGERIES/PROCEDURES Surgical/Procedure History: reports: cholecystectomy, - PRIOR HOSPITALIZATIONS Prior Hospitalizations: reports: none - IMMUNIZATION STATUS Childhood Immunizations: See Nurse Assessment Flu Vaccine: See Nurse Assessment - FAMILY HISTORY Family History: reviewed, not pertinent - SOCIAL HISTORY Smoking: non-smoker Substance Use: none/never Physical Exam- Neurological - Physical Exam-Neuro Initial Vital Signs Reviewed: Yes General Appearance: alert (postictal state during exam but alert), mild distress , obese, slow to respond. negative: lethargic, obtunded, combative Eye Exam: bilateral eye: normal inspection, PERRL, EOMI HENMT: normocephalic/atraumatic, moist mucous membranes, normal ENT inspection Head Injury: no evidence of injury Neck: non-tender, full range of motion, supple, normal inspection Respiratory: chest non-tender, lungs clear, normal breath sounds Cardiovascular: normal peripheral pulses, regular rate, rhythm Abdominal Exam: normal bowel sounds, non tender, soft Lymphatic: no adenopathy Peripheral Pulses: radial (R): 2+, radial (L): 2+ Extremity: normal range of motion, non-tender, normal inspection benefit authorizer Exam: normal hearing, PERRL. negative: normal speech (unable to answer questions but can comprehend, postictal), abnormal eye position, facial asymmetry, facial droop Motor/Sensory: no motor deficit, no sensory deficit, no pronator drift Neurologic: grossly normal, no motor/sensory deficits. negative: facial droop, focal weakness, motor weakness Integumentary: normal color, normal turgor, warm/dry Psych/Mental Status: normal mood/affect, normal thought content, normal thought process, oriented x 3 - Glascow Coma Scale Best Eye Response: (3) open to voice Best Verbal Response: (2) incomprehsible sounds Best Motor Response: (4) withdraws to pain Total Glascow Score: 9 Progress - PLAN OF CARE/RESULTS Progress/Plan/Lab Results: Vital Signs - 8 hr 02/05/19 20:10 02/05/19 20:46 02/05/19 20:52 Temperature 99.4 F Pulse Rate 97 H 91 H 92 H Respiratory Rate 20 20 17 Blood Pressure 138/80 133/67 141/77 O2 Sat by Pulse Oximetry 100 100 100 02/05/19 22:09 Temperature 99.8 F H Pulse Rate 86 Respiratory Rate 15 Blood Pressure 133/65 O2 Sat by Pulse Oximetry 100 Laboratory Results - last 24 hr 02/05/19 02/05/19 02/05/19 19:40 19:40 19:40 WBC 6.08 RBC 4.05 L Hgb 10.3 L Hct 29.9 L MCV 73.8 L MCH 25.4 L MCHC 34.4 RDW Std Deviation 14.0 Plt Count 277 MPV 9.4 Immature Gran % (Auto) 0.7 H Neut % (Auto) 64.3 Lymph % (Auto) 25.2 [place] % (Auto) 7.2 Eos % (Auto) 2.3 Baso % (Auto) 0.3 Immature Gran # (Auto) 0.04 Neut # (Auto) 3.91 Lymph # (Auto) 1.53 [place] # (Auto) 0.44 Eos # (Auto) 0.14 Baso # (Auto) 0.02 Segmented Neutrophils 66 Lymphocytes 28 Monocytes 6 Hypochromia 2+ Microcytosis 1+ Sodium 136 Potassium 3.6 Chloride 101 Carbon Dioxide 21 L Anion Gap 15 BUN 6 L Creatinine 0.5 Estimated GFR/1.73 m2 > 60 BUN/Creatinine Ratio 12 Glucose 110 H POC Glucose Calculated Osmolality 270 Calcium 9.4 Magnesium Total Bilirubin 0.30 AST 19 ALT 23 Alkaline Phosphatase 83 Total Protein 7.6 Albumin 4.1 Globulin 4.0 Albumin/Globulin Ratio 1.0 Ser , Semi-Qnt 04704.0 Urine Source Urine Color Urine Clarity Urine pH Ur Specific [place] Urine Protein Urine Ketones Urine Blood Urine Nitrite Urine Bilirubin Urine Urobilinogen Urine Microscopic RBC Urine WBC Urine Microscopic WBC Ur Epithelial Cells Urine Bacteria Urine Glucose 02/05/19 02/05/19 02/05/19 19:40 19:45 20:00 WBC RBC Hgb Hct MCV MCH MCHC RDW Std Deviation Plt Count MPV Immature Gran % (Auto) Neut % (Auto) Lymph % (Auto) [place] % (Auto) Eos % (Auto) Baso % (Auto) Immature Gran # (Auto) Neut # (Auto) Lymph # (Auto) [place] # (Auto) Eos # (Auto) Baso # (Auto) Segmented Neutrophils Lymphocytes Monocytes Hypochromia Microcytosis Sodium Potassium Chloride Carbon Dioxide Anion Gap BUN Creatinine Estimated GFR/1.73 m2 BUN/Creatinine Ratio Glucose POC Glucose 104 Calculated Osmolality Calcium Magnesium 1.8 Total Bilirubin AST ALT Alkaline Phosphatase Total Protein Albumin Globulin Albumin/Globulin Ratio Ser , Semi-Qnt Urine Source CATH Urine Color YELLOW Urine Clarity SL. CLOUDY A Urine pH 6.0 Ur Specific [place] 1.015 Urine Protein NEGATIVE Urine Ketones TRACE Urine Blood NEGATIVE Urine Nitrite NEGATIVE Urine Bilirubin NEGATIVE Urine Urobilinogen 1 Urine Microscopic RBC <10 Urine WBC TRACE A Urine Microscopic WBC <10 Ur Epithelial Cells <10 Urine Bacteria 3+ Urine Glucose NEGATIVE Orders Category Date Time Status Admit - [facility] Routine AdmDCTranf 02/05/19 22:09 Active Activity - Up Ad Marisabel ORDERED Care 02/05/19 22:09 Active [place] Insertion ORDERED Care 02/05/19 20:12 Completed Saline Loc DIRECTED Care 02/05/19 22:09 Active Saline Loc NOW Care 02/05/19 19:42 Completed Vital Signs Order Q 4-HR ASSESS Care 02/05/19 22:[address] HEAD W/O CONTRAST [CT] Stat Exams 02/05/19 21:05 Completed CBC WITH DIFF [HEME] Stat Lab 02/05/19 19:40 Completed COMPREHENSIVE METABOLIC PANEL [CHEM] Stat Lab 02/05/19 19:40 Completed MAGNESIUM [CHEM] Stat Lab 02/05/19 19:40 Completed QUANT TEST Stat Lab 02/05/19 19:40 Completed 0.9% Sodium Chloride Inj [Ns] 1,000 ml Med 02/05/19 22:09 Active IV 150 mls/hr 0.9% Sodium Chloride Inj [Ns] 500 ml Med 02/05/19 19:43 Discontinued IV 999 mls/hr Lamotrigine [Lamictal] Med 02/05/19 22:49 Discontinued 200 mg PO NOW ONE Levetiracetam [Keppra] 500 mg Med 02/05/19 21:06 Discontinued 0.9% Sodium Chloride Inj [Ns] 100 ml IV NOW Magnesium Sulfate Med 02/05/19 19:32 Discontinued 2 gm .ROUTE .STK-MED ONE Magnesium Sulfate 2 gm/S.w.i. Med 02/05/19 19:42 Discontinued 2 gm in 50 ml IV NOW Oxygen Device Routine Oth 02/05/19 22:10 Active Transfer/Admit Order [TRANSFER] Routine Transfer 02/05/19 22:09 Completed Result Diagrams: 02/05/19 19:40 02/05/19 19:40 - CT/MRI 1 CT Study: Head ( EXAM: CT HEAD W/O CONTRAST HISTORY: seizure, TECHNIQUE: CT head without contrast COMPARISON: 05/11/2016 FINDINGS: No parenchymal hemorrhage. No epidural or subdural hematoma. No subarachnoid hemorrhage. No mass identified on this noncontrasted exam. No hydrocephalus. No sinus opacification. IMPRESSION: No hemorrhage. Negative brain CT without contrast. This exam was performed using automated exposure control, adjustment of mA or kV according to patient size, and/or use of iterative reconstruction technique. Electronically signed by Fer Ma 02/05/2019 9:52 PM) Impression: Normal - CONSULTS/PCP/HOSPITALIST Notification #1 *Consult/PCP/Hospitalist*: Dr. Thomason Time Discussed: 20:50 Consult Disposition: other (Dr. De Dios discussed admitting pt w/Dr. Thomason.) Departure - Departure Date of Disposition Decision: 02/06/19 Time of Disposition Decision: 00:15 DIAGNOSIS: Seizure, Disposition: ADMITTED INPATIENT 09 Certified Medical Emergency: Emergent Condition: Good - Critical Care Note This patient required my direct & personal management of CC.: No Attestation - Physician/ CORNELIO Attestation Patient care was provided by Advanced Practice Provider:: No The physician spent face to face time with patient:: Yes Advanced Practice Provider documentation review:: Supervising physician onsite and consulted in the evaluation and care of this patient. The physician did have a face to face encounter with the patient. This chart was documented by the indicated scribe, (Emma Swain Scribe) and accurately reflects the services I performed and decisions made by , Gayatri De Dios MD, as attested by the provider's signature.
[2019-02-06] MEDS ORDERED: TYLENOL PO ONE (09:28)
[2019-02-06] MEDS: TYLENOL PO PRN (18:56)
--- NOTE | 2019-02-06 21:47 | HISTORY AND PHYSICAL ---
CHIEF COMPLAINT: Seizure. HISTORY OF PRESENT ILLNESS: Patient is a 28-year-old female who is roughly 4 to 5 months , presented to the hospital noting that she had dinner and started feeling odd. She had a seizure I believe at home and then had another seizure in the ER. She does have a history of seizures. Currently she is postictal and is slightly confused. She is awake, alert, she is in no respiratory distress, answered some questions but also seems somewhat confused. ALLERGIES: No known drug allergies. MEDICATIONS: vitamins. PAST MEDICAL HISTORY: Seizures. REVIEW OF SYSTEMS: Difficult to obtain from Ms. Lofton although the ER was able to talk to the who is not currently present. Denies any recent fevers, chills, cough, congestion. Denies any recent GI or issues. Denies any recent change her stress. FAMILY HISTORY: Noncontributory. PAST MEDICAL HISTORY: Significant for recurrent constipation, diverticulosis, diabetes, gestational, history of seizures with the last one I believe a year ago. PAST SURGICAL HISTORY: She has had a cholecystectomy and a . SOCIAL HISTORY: She is . Does not smoke, drink or use illicit drugs. PHYSICAL EXAMINATION: VITAL SIGNS: Reviewed. Temperature 99.4 degrees, pulse 92, respiratory 17, BP 138/80, saturation 100% on room air. GENERAL: Patient is awake, currently she is in no distress, does answer questions although slow to respond and has a very soft spoken voice. Appears to be oriented. HEENT: Normocephalic. NECK: Supple. CARDIOVASCULAR: Regular rate. No murmurs. CHEST: Clear nonlabored, no wheezing. ABDOMEN: Soft, nondistended. EXTREMITIES: Moves all extremities. No focal changes. SKIN: Warm, dry, no rashes. ASSESSMENT: 1. Seizure. 2. Second trimester . 3. History of gestational diabetes blood sugar currently 110. PLAN: We will admit patient the hospital for observation. Her CT of the head was negative. If symptoms persist will need to obtain an MRI and a Neurology consult. Otherwise, she can be discharged home and these can be done as an outpatient. cc: Orlando Olguin MD
[2019-02-07] MEDS ORDERED: NUBAIN IV PRN (17:07)
[2019-02-07] MEDS: TYLENOL PO PRN (17:08)
--- NOTE | 2019-02-07 18:04 | OB/GYN PROGRESS NOTE ---
Progress Note OB - . Patient Problems: Current Active Problems Problem Status Onset Acute Seizure Acute UTI (urinary tract infection) Acute OB Progress Note: Vital Signs - 24 hr 02/06/19 20:08 02/06/19 20:30 02/07/19 00:29 Temperature 98.1 F 98.2 F Pulse Rate 79 78 Respiratory Rate 20 20 Blood Pressure 133/48 134/66 O2 Sat by Pulse Oximetry 100 98 100 02/07/19 03:47 02/07/19 07:49 02/07/19 07:50 Temperature 98.3 F 98.6 F Pulse Rate 87 75 Respiratory Rate 21 18 Blood Pressure 121/63 124/60 O2 Sat by Pulse Oximetry 100 98 100 02/07/19 12:39 02/07/19 16:10 Temperature 98.7 F 98.2 F Pulse Rate 87 80 Respiratory Rate 18 16 Blood Pressure 118/60 142/73 O2 Sat by Pulse Oximetry 100 100 The pt is a 28 yr old at approximately 17.4 weeks by a LMP of 10/07/2018. EDC 07/14/2019 She is sure of her LMP. She has been admitted to [facility] since 02/05/19 for seizures. She had a witnessed petit mal seizure at home per her and in the ED. She states that she had a seizure when she was a child, but has not had one since then. She has not had any PNC due to not having insurance. Her is complicated by prior CDx3 and GDM. She is feeling the baby move. ROS: She denies any CP, SOB, abdominal pain, ctxs, VB. LOF PMH: GDM, diverticulosis, seizures MEDs: PNV ALL: NKDA PSH: CDx3, gallbladder removal FH: Mother is decreased but not a seizure d/o SH: no T/E/D Vital as above GEN: AAOx3 NAD CV: RRR no g/m/r Lungs: CTAB no w/r/r Abd: +BS soft NT/ND Ext: no c/c/e Labs +Urine culture for gram negative rods sensitivity pending A: IUP at 17.4 weeks No PNC Seizure d/o prior CDx3 h/o GDM P: OB panel OB US for dates Seizure meds per Neurology Treat UTI
[2019-02-07 19:57] LABS: RPR NON-REACTIVE (NONREACTIVE)
[2019-02-07 20:33] LABS: RAPID HIV PRESUMPTIVE NEGATIVE
[2019-02-07] MEDS: KEPPRA PO SCH (22:19)
[2019-02-07 22:42] LABS: RUBELLA SCREEN NON IMMUNE (IMMUNE)
[2019-02-08 00:55] LABS: UR AMPHETAMINES QUAL NONE DETECTED (NONE DETECT); UR BARBITUATES QUAL NONE DETECTED (NONE DETECT); UR BENZODIAZEPIN QUAL NONE DETECTED (NONE DETECT); UR CANNABINOIDS QUAL NONE DETECTED (NONE DETECT); UR COCAINE QUAL NONE DETECTED (NONE DETECT); UR METHADONE QUAL NONE DETECTED (NONE DETECT); UR METHAMPHETAMINE QUAL NONE DETECTED (NONE DETECT); UR OPIATES QUAL NONE DETECTED (NONE DETECT); UR OXYCODONE QUAL NONE DETECTED (NONE DETECT); UR PCP QUAL NONE DETECTED (NONE DETECT); UR PROPOXYPHENE QUAL NONE DETECTED (NONE DETECT); UR TCA QUAL NONE DETECTED (NONE DETECT)
[2019-02-08] MEDS: TYLENOL PO PRN (07:20)
[2019-02-08] MEDS: PRECARE PO SCH ×2 (07:21→10:49)
[2019-02-08] MEDS: KEPPRA PO SCH ×2 (07:21→10:49)
--- NOTE | 2019-02-08 08:44 | Diag Imaging Result Doc PS360 ---
EXAM: US OBS COMPLETE > 14 WKS HISTORY: TECHNIQUE: OB ultrasound COMPARISON: None. FINDINGS: There is an intrauterine with an estimated gestational age of 18 weeks one day +/- 10 days based on multiple measurements. This corresponds with a date of delivery of 07/11/2019. survey performed. No focal abnormality identified. heart rate is 138 bpm. The placenta is posterior. Amniotic fluid index is 16.62 cm. The cervix is closed. Cervical length is 3.1 cm. Fetus is in transverse position. IMPRESSION: Intrauterine with an estimated gestational age of 18 weeks one day. Electronically signed by Fer aM 02/08/2019 8:42 AM
[2019-02-08] MEDS ORDERED: ROCEPHIN 1 GM in NS 50 ML IV SCH (09:30)
--- NOTE | 2019-02-08 14:24 | OB/GYN PROGRESS NOTE ---
Progress Note OB - . Patient Problems: Current Active Problems Problem Status Onset Acute Seizure Acute UTI (urinary tract infection) Acute OB Progress Note: Vital Signs - 24 hr 02/07/19 16:10 02/07/19 20:46 02/08/19 00:07 Temperature 98.2 F 98.9 F 98.6 F Pulse Rate 80 89 83 Respiratory Rate 16 21 21 Blood Pressure 142/73 134/61 151/71 O2 Sat by Pulse Oximetry 100 100 100 02/08/19 03:58 02/08/19 07:37 02/08/19 07:39 Temperature 98.3 F 98.4 F Pulse Rate 78 86 Respiratory Rate 20 18 Blood Pressure 150/57 133/72 O2 Sat by Pulse Oximetry 100 100 100 02/08/19 11:24 Temperature 98.6 F Pulse Rate 78 Respiratory Rate 18 Blood Pressure 128/62 O2 Sat by Pulse Oximetry 98 02/06/19 00:01 Urine Culture - Final Urine,Catheterized Escherichia Coli Laboratory Results - last 24 hr 02/07/19 02/07/19 02/07/19 19:05 19:05 19:05 Glucose 137 H Urine Opiates Screen Ur Oxycodone Screen Urine Methadone Screen U Propoxyphene Qual Ur Barbituates Screen Ur Tricyclics Screen Ur Phencyclidine Scrn Ur Amphetamines Screen U Methamphetamines Scrn U Benzodiazepines Scrn Urine Cocaine Screen U Cannabinoids Screen RPR NON-REACTIVE HIV 1&2 Antibody Rapid PRESUMPTIVE NEGATIVE Rubella Immunity Screen NON IMMUNE H Blood Type B POSITIVE Antibody Screen NEGATIVE 02/08/19 00:15 Glucose Urine Opiates Screen NONE DETECTED Ur Oxycodone Screen NONE DETECTED Urine Methadone Screen NONE DETECTED U Propoxyphene Qual NONE DETECTED Ur Barbituates Screen NONE DETECTED Ur Tricyclics Screen NONE DETECTED Ur Phencyclidine Scrn NONE DETECTED Ur Amphetamines Screen NONE DETECTED U Methamphetamines Scrn NONE DETECTED U Benzodiazepines Scrn NONE DETECTED Urine Cocaine Screen NONE DETECTED U Cannabinoids Screen NONE DETECTED RPR HIV 1&2 Antibody Rapid Rubella Immunity Screen Blood Type Antibody Screen HD#3 28 yo No care. 18.2 weeks by U/s performed yesterday. EDC 07/11/2019. Had a seizure on Thursday and has been placed on Keppra. No abd pain, vb, ctx, ROM. Pos FM. No urinary or BM prob. No back pain, fever, or chills. No n/v. VSS AF Gen - Pt in no apparent distress, A&O x 3 Abd - gravid, NT Extreme - no CCE FHT - will be done by nurse later in the day. A/P - IUP @ 18.2 weeks with seizure d/o being followed by Neurologist on Keppra UTI - Sensitivities are in. Currently on IV antibiotics - can change to Macrobid 100mg BID for 7 days labs reviewed - Rubella non immune - will address after delivery - Needs CBC No care - pt states previous OB retired. Pt has heard of Dr. Hartman and wants to be referred to her after discharge. Will continue getting FHT as long as pt is in the hospital.
[2019-02-08 15:22] VITALS: BP 124/74
[2019-02-08 16:23] LABS: HIV ANTIBODY SCREEN SEE COMMENTS
[2019-02-09 09:37] LABS: HEPATITIS B SURFACE ANTIGEN SEE COMMENTS
--- NOTE | 2019-02-09 14:53 | PROGRESS NOTE ---
DATE: 02/07/2019 SUBJECTIVE: The patient has no major complaints except some headache. She reports 6 discrete episodes of seizures. OBJECTIVE: Vital Signs: Blood pressure is 142/73, heart rate 80, respiratory rate 16, and temperature 98.2. Cardiovascular: Regular rate and rhythm. Pulmonary: Bilateral breath sounds clear to auscultation. GI: Abdomen is soft, nontender, and nondistended. Bowel sounds are positive. No new data. PROBLEM LIST: 1. Seizure disorder. I have ordered a neuro consult. Her symptoms have not persisted but I am not sure if there is anything else that we need to do from that standpoint but Dr. Koroma has evaluated the patient and I greatly appreciate his help. We will likely initiate Keppra which I have gone ahead and done and we will treat based on her EEG findings. 2. A 15 week gestation. I have ordered an OB consult just to follow along, especially since we are going to start neuroleptic medications. DISPOSITION: I think if she is stable tomorrow we can anticipate discharge tomorrow. cc: Ovi Hale MD
--- NOTE | 2019-02-09 16:22 | CONSULTATION ---
DATE OF CONSULTATION: 02/07/2019 HISTORY OF PRESENT ILLNESS: Ms. Lofton is 28 years old, reported to be 4-5 weeks , recent spells with question of seizure. History from the patient is that she remembers being seated noticing that her mouth was twisting and that she could hear what was said, but could not respond verbally. She reports next realizing she was in the hospital. History from catalyst operator is that she was seated at the table and complained to him that "my lips are twisting." He reports she began to cry and then there was some rigidity in the limbs. Arms were extended at the elbows. He did not see anything definitely focal. He saw some twitching movements around the mouth. This episode resolved and she had several more similar episodes over a period of a few hours. Some of this was witnessed by medical personnel including EMT and emergency room staff. She seemed sleepy afterwards. There was never clear focal neurologic feature. By report, she had a few episodes yesterday and I am not sure how well witnessed and documented these were. She has not had any episodes today. She denies illicit drug use, ethanol use, benzodiazepine use, use of other sedatives, use of illicit substances. She had not made any recent medication changes. Her only current medicine was a vitamin, by her report. LABS: Workup here includes lab showing nothing remarkable on the chemistry profile. Noncontrast CT was unremarkable. Urine showed no proteinuria. There was 3+ bacteria and trace pyuria. We do not have urine drug screen this admission. VITAL SIGNS: She has been afebrile. Systolic blood pressures have ranged 110s to 140s. PAST HISTORY: Is reported unremarkable. She told me she had some kind of spell about 9 years ago that might have been similar, but might have not been similar. She was not treated with seizure medicine. She has not had similar episodes with prior pregnancies. This has been otherwise uncomplicated. She has not had peripheral edema, hypertension or proteinuria documented. EXAMINATION: On exam, she is awake, alert, attentive, appropriate, oriented. Speech is not dysarthric. Language function is intact. Memory is good. Head and neck are unremarkable. There is no meningismus. Visual mcginnis are full. Extraocular movements full. Facial motility is normal and symmetric. Gag is intact. Tongue is midline. She can hear. Shoulder shrug is equal. Strength is normal in the arms. There was some fluctuating effort when testing the legs, but no definite motor deficit in the legs. Limb tone is symmetric on the right and left. Plantar response is silent bilaterally. Reflexes are 1+ at the wrists and ankles symmetrically. She reports good sensation on gross testing over the limbs. I did not test her gait. Proprioception is normal at the great toe MTP joint and at the second finger PIP joint bilaterally. IMPRESSION: History of episodes, question of seizure. There are some atypical features including report that she could hear what was going on, but could not speak. The arm posturing described by catalyst operator is not typical. There does seem to have been postictal drowsiness, which would be typical for seizure. If this has been seizure, etiology is not certain. She does not have other stigmata of eclampsia. She had an episode 9 years ago, which may or may not have been similar. She reports no history of serious head injury or other risk for subsequent seizure. PLAN: As discussed with Dr. Hale, we will get EEG and further plans will depend on that report. We might consider cautious anticonvulsant medication. She should be beyond time frame for concern regarding teratogenicity. Lamotrigine might be problematic in the latter half of , but any of the other seizure medicines would be reasonable considerations. Thanks for asking Neurology to see Ms. Lofton. cc: MD WILLAM Whitman III
--- NOTE | 2019-02-10 17:57 | EEG REPORT ---
DATE: 02/07/2019 EEG: EEG #[id number] done on 02/07/2019. COMMENT: This is a digitally recorded EEG on a 28-year-old patient, middle trimester , recent episodes with question of seizure. FINDINGS: During waking, medium amplitude 9 Hz posterior rhythm is present symmetrically and reacts normally to eye opening. Background contains polymorphic and rhythmic theta frequencies over the frontal and central regions symmetrically. There is slight frontal muscle contraction artifact and occasional EKG artifact, which do not hinder interpretation. Hyperventilation was not done. Photic stimulation produced some symmetric entrainment. Drowsing occurred briefly with appearance of more generalized slowing and attenuation of the posterior rhythm. Stage 2 sleep was not recorded. No definite epileptiform discharge was identified. INTERPRETATION: Normal EEG. CORRELATION: The absence of epileptiform discharges on a single EEG does not exclude a clinical diagnosis of seizures, but there is nothing on this record to establish the presence of a seizure disorder. cc: MD Ovi Whitman III, MD
--- NOTE | 2019-02-11 14:11 | DISCHARGE SUMMARY ---
ADMISSION DATE: 02/05/2019 DISCHARGE DATE: 02/08/2019 ADDENDUM: SUBJECTIVE: Patient is doing well. No further seizure activity. She does have a little bit of intermittent dysuria she says when her bladder is full. In any case, no further seizure activity. Exam is nonfocal. She will be discharged today. I have discussed the case with Dr. Koroma. No clear seizures per EEG but apparently she has had an episode when she was 16 and due to concern over welfare of baby and mother will go ahead and treat through her delivery. We will do Keppra. Dr. Hood has evaluated the patient. Appreciate her input. Recommended Macrobid. I was going to do Keflex. We started Rocephin while she was here but I think that is fine. We have to treat because she is and follow up with Dr. Hartman and Dr. Koroma after delivery. This is a [id number] encounter note with Chloe Foreman. cc: Ovi Hale MD
--- NOTE | 2019-02-11 14:26 | DISCHARGE SUMMARY ---
ADMISSION DATE: 02/05/2019 DISCHARGE DATE: 02/08/2019 ADMISSION DIAGNOSES: 1. Seizure. 2. Second trimester . 3. History of gestational diabetes. DISCHARGE DIAGNOSES: 1. Seizure. 2. Second trimester . 3. History of gestational diabetes. 4. Urinary tract infection. CONSULTATIONS: 1. Dr. Koroma. 2. Dr. Tess Hood, NOTCHING MACHINE OPERATOR. PERTINENT SURGERIES AND PROCEDURES: None. HOSPITAL COURSE: Ms. Savanah Lofton is a 28-year-old female with a medical history of being 4-5 months with a history of seizures. Apparently she was at home, was feeling odd at the dinner table, had a seizure, came to the ER, had another seizure, and was assessed while she was postictal and slightly confused. There was no respiratory distress. She was able answer some questions but was still somewhat confused. She was also found to have a urinary tract infection and was treated with antibiotics accordingly. Neurology was consulted, along with NOTCHING MACHINE OPERATOR. She did have some headache when she started coming around. heart tones monitored by nursing staff as well. She had magnesium infused, normal saline transfused as well. In reading through nursing notes, it looks like she had at least 3 additional seizures while she was in the ER, but those were the last ones she had. She is going to be discharged. She has had no seizures since the night of the . She is going to be on Keppra and follow up Dr. Koroma after the delivery of the baby. She will be on antibiotics for a urinary tract infection. DISCHARGE VITAL SIGNS: Temperature 98.7 degrees, heart rate 93, respiratory rate 18, blood pressure 124/74, O2 saturation 98% on room air. DISCHARGE LAB DATA: The only labs she had were drawn on the , the night of admission. White blood cell count 6,000, hemoglobin 10, hematocrit 29, platelet count 277,000. Sodium 136, potassium 3.9, BUN 6, creatinine 0.5, glucose 110, calcium 9.4, magnesium 1.8, bilirubin 0.30, AST 19, ALT 23, albumin 4.1. Serum screen is 16,040. Urinalysis was cloudy with trace white blood cells and 3+ bacteria. Urine drug screen on the was negative. On the she had a RPR, HIV, and rubella immunity. She is not immune to rubella. The HIV was negative. The RPR was nonreactive. PERTINENT IMAGING: On 02/05/[address], no hemorrhage. On 02/08/2019 had an OB ultrasound that showed an intrauterine with estimated gestational age of 18 weeks plus 1 day. DISCHARGE MEDICATIONS: 1. vitamins once p.o. daily. 2. Keppra 500 mg p.o. twice daily. 3. It looks like in the NOTCHING MACHINE OPERATOR notes they mentioned putting her on Macrobid 100 mg p.o. twice daily for 7 days. DISCHARGE PHYSICIAN FOLLOWUPS: Dr. Hartman and also Dr. Koroma. DISCHARGE INSTRUCTIONS: If her condition changes, contact physician and/or return to the emergency department. Changes may include, but are not limited to, shortness of breath, increased fatigue, excessive bleeding, unexplained weight loss or gain, unimaginable pain, signs or symptoms of infection. DISCHARGE DISPOSITION: Home. DISCHARGE DIET: Regular. DISCHARGE ACTIVITY: As tolerated. Dictated by NICOLETTE Aguayo for Ovi Hale MD cc: NICOLETTE Aguayo MD
== END 2019-02-08 17:33 | disposition home or self-care (01) ==
LOC: P.ED 19:37 → SUATTDRO 22:51 → INTOOBSV 22:51 → P.MEDSURG 22:51
PROVIDERS: ATTEND Internal Medicine
CPT/HCPCS: 51702; 70450; 76805; 80053; 80104; 80301; 80305; 81001; 82947; 82948; 83735; 84702; 85025; 86592; 86701; 86703; 86762; 86850; 86900; 86901; 87077; 87088; 87186; 87340; 87389; 87390; 87491; 87591; 94761; 95816; 96365; 96375; 99285; A9270; G0431; G0434; G0477; J0696; J1953; J2300; J3475; J7030; J7040; XXXXX